=== PATIENT | female | born 1990 | race Caucasian/White ===

== ENCOUNTER → 2020-12-06 16:36 | Outpatient (CLI) | payer MEDICAID, SELFPAY ==
[2020-12-06 17:55] LABS: Vitamin D,25 Hydroxy 48.5 ng/mL
== END ==
PROVIDERS: Visit Provider Family Medicine
DX: Z13.21 Encounter for screening for nutritional disorder (principal)
CPT/HCPCS: 36415; 82306

== ENCOUNTER → 2025-06-02 | Outpatient (CLI) | payer BC, SELFPAY ==
--- NOTE | 2025-06-02 14:59 | RAD_ITS ---
PROCEDURE: RAD/Foot min 3 Views
== END | disposition home or self-care (01) ==
LOC: MTRAD 14:56
PROVIDERS: PCP Family Medicine; Referring Provider Family Medicine; Visit Provider Family Medicine
DX: M79.672 Pain in left foot (principal)
CPT/HCPCS: 73630